=== PATIENT | male | born 1965 | race Caucasian/White ===

== ENCOUNTER 2021-02-06 22:53 | Observation (INO) | payer SELFPAY ==
[~2021-02-06 22:53] MED LIST: Iopamidol-370 76% 500 ML 1 ML ONE
[2021-02-06 23:19] LABS: #Basophils 0.1 thou/uL (0.0-0.2); #Eosinphils 0.3 thou/uL (0.0-0.7); #Lymphocytes 2.7 thou/uL (1.20-3.40); #Monocytes 0.9 thou/uL (0.11-0.59); #Neutrophils 10.7 thou/uL (1.40-6.50); %Basophils 0.5 % (0.0-1.0); %Eosinophils 2.2 % (0.0-10.0); %Lymphocytes 18.1 % (21.0-51.0); %Monocytes 6.1 % (0.0-10.0); %Neutrophils 73.1 % (42.0-75.0); Hemoglobin 16.1 g/dL (14.0-18.0); Mean Corpuscular HGB CONC 35.4 g/dL (32.0-36.0); Mean Corpuscular Hemoglobin 34.5 pg (27.0-31.0); Mean Corpuscular Volume 97.7 fL (78.0-98.0); Mean Platelet Volume 6.9 fL (7.4-10.4); Platelet Count 326 thou/uL (130-400); RBC Distribution Width 11.5 % (11.5-14.5); Red Blood Cell (RBC) Count 4.65 mill/uL (4.70-6.10); White Blood Cell (WBC) Count 14.7 thou/uL (4.8-10.8)
[2021-02-06 23:29] LABS: ALT (SGPT) 15 U/L (8-55); AST (SGOT) 20 U/L (5-34); Albumin 4.1 g/dL (3.5-5.0); Alkaline Phosphatase 81 U/L (40-110); Anion Gap 12 mmol/L (10-20); BUN (Urea Nitrogen) 7 mg/dL (8.4-25.7); Bilirubin, Total 0.2 mg/dL (0.2-1.2); Calc. Creatinine Clearance 0 mL/min (70-130); Calcium 8.8 mg/dL (7.8-10.44); Carbon Dioxide 24 mmol/L (22-29); Chloride 100 mmol/L (98-107); Globulin 3.2 g/dL (2.4-3.5); Glucose 108 mg/dL (70-105); Lipase 13 U/L (8-78); Potassium 4.2 mmol/L (3.5-5.1); Protein, Total 7.3 g/dL (6.0-8.3); Sodium 132 mmol/L (136-145)
[2021-02-07] MEDS ORDERED: Ondansetron PF 4 MG/2 ML Vial IVP PRN (00:16)
[2021-02-07] MEDS ORDERED: Acetaminophen 325 MG TAB PO SCH (00:30)
[2021-02-07 00:46] LABS: INR-International Normal Ratio 0.9; PTT 26.6 sec (22.9-36.1); Prothrombin Time 12.5 sec (12.0-14.7)
[2021-02-07] MEDS ORDERED: Acetaminophen 325 MG TAB ONE ×2 (01:38→06:09)
[2021-02-07] MEDS: Sodium Chloride 0.9% 1,000 ML IV SCH ×2 (01:40→12:23)
[2021-02-07 02:11] VITALS: BMI 22.0
[2021-02-07 02:48] LABS: SARS-CoV-2 NAA Rapid Test Not Detected (NotDetected)
[2021-02-07] MEDS: Acetaminophen 325 MG TAB PO SCH ×2 (06:13→13:01)
[2021-02-07] MEDS ORDERED: Ondansetron PF 4 MG/2 ML Vial ONE (06:14)
[2021-02-07] MEDS ORDERED: Nicotine 7 MG PATCH TD SCH (07:00)
[2021-02-07] MEDS ORDERED: Oxazepam 10 MG CAP PO SCH (09:00)
[2021-02-07] MEDS ORDERED: Famotidine/PF 20 mg/2ml Vial SLOW IVP SCH (09:00)
[2021-02-07] MEDS ORDERED: Folic Acid 1 MG TAB PO SCH (09:00)
[2021-02-07] MEDS ORDERED: Thiamine 100 MG TAB PO SCH (09:00)
[2021-02-07 12:22] VITALS: BP 121/76; TEMP 97.7
== END 2021-02-07 13:00 | disposition home or self-care (01) ==
LOC: EDSEX 22:53 → ERS 22:53 → ERHOLD 02-07 00:16
PROVIDERS: ADMIT Specialist; ATTEND Specialist
DX: S06.6X9A Traumatic subarachnoid hemorrhage with loss of consciousness of unspecified duration, initial encounter (principal); S00.31XA Abrasion of nose, initial encounter; S00.81XA Abrasion of other part of head, initial encounter; M43.12 Spondylolisthesis, cervical region; F10.129 Alcohol abuse with intoxication, unspecified; Z20.822 Contact with and (suspected) exposure to COVID-19; V29.40XA Motorcycle driver injured in collision with unspecified motor vehicles in traffic accident, initial encounter; Y90.6 Blood alcohol level of 120-199 mg/100 ml
CPT/HCPCS: 0240U; 36415; 70450; 71260; 72125; 74177; 80053; 80307; 83690; 85025; 85610; 85730; 86850; 86900; 86901; 96374; G0378; G0390; J2405; Q9967